=== PATIENT | male | born 1990 | race Caucasian/White ===

== ENCOUNTER 2016-12-08 12:17 | Emergency (ER) | payer BC ==
[~2016-12-08] VITALS: Ht 177.8 cm; Wt 80.3 kg
--- NOTE | 2016-12-08 12:35 | NUR ---
PT BIB [facility] C/O FEELING "SLEEPY" S/P TAKING SOMA TODAY. DENIES PHYSICAL COMPLAINT OTHER THAN FEELING "SLEEPY". RESP EVEN UNLABORED. A/OX4. NAD NOTED. IN ER BED 14. Addendum: 12/08/16 at 1410 by HFOX PT PRESENTED INITALLY WITH UNSTEADY GAIT AND SLURRED SPEECH.
--- NOTE | 2016-12-08 13:02 | NUR ---
PROVIDED WITH MEAL TRAY
--- NOTE | 2016-12-08 14:10 | NUR ---
IV removed. Catheter intact and site benign. Pressure and 4x4 applied to site. No bleeding noted. Patient discharged to home in stable condition. Written and verbal after care instructions given. Patient verbalizes understanding of instruction. AMBULATORY WITH STEADY GAIT AT THIS TIME. REINFORCED INSTRUCTIONS NOT TO DRIVE.
[2016-12-08 14:11] VITALS: BP 102/64
== END 2016-12-08 14:12 | disposition home or self-care (01) ==
LOC: ER 12:22
DX: T50.995A Adverse effect of other drugs, medicaments and biological substances, initial encounter (principal); G89.29 Other chronic pain; M54.9 Dorsalgia, unspecified; Y92.89 Other specified places as the place of occurrence of the external cause
CPT/HCPCS: A4606; Z7610